=== PATIENT | female | born 1935 | race Hispanic/Latino ===

== ENCOUNTER 2018-12-11 20:23 | Observation (INO) | payer OTHER, MEDICARE ==
[~2018-12-11] VITALS: Ht 160 cm; Wt 58.1 kg
[2018-12-11] MEDS ORDERED: ONDANSETRON HCL 4 MG/2 ML VIAL ONE (20:56)
[2018-12-11] MEDS ORDERED: MORPHINE SULFATE 2 MG/ML 1ML SYG ONE (20:57)
[2018-12-11 20:59] LABS: BASOPHILS % (AUTO) 0.4 % (0.0-5.0); EOSINOPHILS % (AUTO) 2.6 % (0.0-8.0); HEMATOCRIT 40.1 % (36-48); LYMPHOCYTES % (AUTO) 30.8 % (21.0-51.0); MEAN CORPUSCULAR HEMOGLOBIN 30.8 pg (27.0-33.0); MEAN CORPUSCULAR HGB CONC 33.7 g/dL (32.0-36.0); MEAN CORPUSCULAR VOLUME 91.2 fL (79-99); MONOCYTES % (AUTO) 8.7 % (3.0-13.0); NEUTROPHILS % (AUTO) 57.5 % (40.0-77.0); NUCLEATED RED BLOOD CELLS 0.1 % (0.0-0.19); PLATELET COUNT (AUTO) 218 K/uL (130-400); RED BLOOD CELL COUNT(AUTO) 4.39 MIL/uL (4.00-5.50); RED CELL DISTRIBUTION WIDTH 13.5 % (11.0-15.5); WHITE BLOOD COUNT (AUTO) 10.9 K/uL (4.8-10.8)
[2018-12-11 21:16] LABS: CREATININE 1.4 mg/dL (0.5-1.5); POTASSIUM 3.6 mmol/L (3.5-5.1)
[2018-12-11 21:20] LABS: ALBUMIN 3.8 g/dL (3.5-5.0); BILIRUBIN,TOTAL 0.3 mg/dL (0.2-1.0); TOTAL PROTEIN, SERUM 8.3 g/dL (6.0-8.3)
[2018-12-11] MEDS ORDERED: SODIUM CHLORIDE 0.9% 100 ML IV ONE (23:53)
[2018-12-11] MEDS ORDERED: CEFTRIAXONE SODIUM 1 GM ONE (23:53)
[2018-12-12] VITALS (7 sets, daily range): BP systolic 105–159; BP diastolic 58–82
--- NOTE | 2018-12-12 02:20 | NUR ---
ADMIT PT ADMITTED TO ROOM 418, AAOX3. CLAIMS OF SLIGHT PAINS TO RT LOWER QUAD OF ABDOMEN PAIN, BUT REFUSES ANY PAIN MEDS AT THIS TIME. ADMISSION CARE DONE. ADMISSION DATA BASE COMPLETED. PICTURE OF EXCORIATED ABDOMINAL WALL AND COLOSTOMY STOMA TAKEN, PLACED IN THE CHART. DRESSING WITH PETROLEUM GAUZE DONE OVER COLOSTOMY SITE THEN APPLIED BARRIER CREAM ON RED AND EXCORIATED SKIN SURROUNDING STOMA. COVERED WITH 4X4 THEN SECURED WITH PAPER TAPE. STARTED ON IVF OF NS REGULATED AT 75CC/HR. KEPT COMFORTABLE IN BED WITH HOB ELEVATED. PROVIDED WITH CLEAR LIQUIDS AT THIS TIME. OREINTED TO ROOM AND UNIT. IN FOR MORE CARE AND MANAGEMENT. Addendum: 12/12/18 at 0345 by DINO NATARAJAN RN RN Amended: Links added.
[2018-12-12 02:38] LABS: APPEARANCE,URINE Clear (CLEAR); BILIRUBIN,URINE Negative (NEGATIVE); COLOR,URINE Yellow (YELLOW); GLUCOSE, URINE (UA) Negative (NEGATIVE); KETONES,URINE Negative (NEGATIVE); LEUKOCYTE ESTERASE ,URINE Trace (NEGATIVE); NITRATE,URINE Negative (NEGATIVE); OCCULT BLOOD,URINE Negative (NEGATIVE); PROTEIN,URINE Trace mg/dL (NEGATIVE); UROBILINOGEN,URINE 0.2 mg/dL (0.2-1.0)
[2018-12-12 02:46] LABS: BACTERIA,URINE Few /HPF (None Seen); RBC,URINE 0-1 /HPF (0-1); WBC,URINE 0-1 /HPF (0-1)
[2018-12-12] MEDS ORDERED: LACTATED RINGERS 1000ML 1,000 ML IV ONE (02:46)
[2018-12-12 02:47] LABS: HYALINE CASTS, URINE 0-1 /LPF (0-1 /LPF)
[2018-12-12] MEDS: LACTATED RINGERS 1000ML 1,000 ML IV SCH ×2 (03:54→16:08)
[2018-12-12] MEDS ORDERED: ACETAMINOPHEN 325 MG TAB PO PRN (04:00)
[2018-12-12] MEDS ORDERED: ONDANSETRON HCL 4 MG/2 ML VIAL IVP PRN (04:00)
[2018-12-12] MEDS ORDERED: HYDRALAZINE HCL 20 MG/ML VIAL IV PRN (04:00)
[2018-12-12] MEDS ORDERED: TEMAZEPAM 15 MG CAPSULE PO PRN (04:00)
[2018-12-12] MEDS ORDERED: MORPHINE SULFATE 4 MG/1ML SYG IVP PRN (04:00)
--- NOTE | 2018-12-12 06:10 | NUR ---
ROUNDS PT RESTING WELL, FAIRLY ASLEEP WITH RESPIRATIONS EVEN AND UNLABORED. NO DISTRESS NOTED. KEPT UNDISTURBED FOR NOW. FOR MORE CARE AND MANAGEMENT.
[2018-12-12] MEDS: MORPHINE SULFATE 2 MG/ML 1ML SYG IVP PRN (10:15)
[2018-12-12] MEDS: FAMOTIDINE/PF 20 MG/2 ML VIAL IV SCH (10:18)
--- NOTE | 2018-12-12 16:00 | NUR ---
INITIAL MET W PATIENT AT [facility]. PT HERE FOR LEAKING UNMANAGEABLE OSTOMY- WITH SKIN EXCORIATION AND CONSTANT OZZING AROUN OSTOMY FLANGE- SKIN IS RAW AND RED PT LIVES W DAUGHTER AND SON, SON MARGARET WORKS AND WILL SUPPLY TRANSPORT HOME DAUGHTER CURRENTLY HOSPITALIZED FOR KIDNEY STONES PT STATES SHE NO LONGER GOES TO SEE DR. FLANAGAN, WANTS THE FACE SHEET CHANGES BUT CANNOT REMEMBER HER MD NAME, THINKS ITS [facility]? HAS A ROLLING WALKER AND USES IT AT ALL TIMES. NO PROVIDER SERVICES HAS HAS OSTOMY SINCE MARCH, HAVING TROUBLE GETTING SUPPLIES. [facility] WHERE SHE GETS HER SUPPLIES HAVE TOLD HER THEY CAN NO LONGER REFILL THE RX. PT CONCERNED AOBUT THIS. SPOEK TO CHRISTELLE Vo THE OSTOMY SITE- MACERATED, RED SORE- WILL LOIS SURGEONS RECOMMENDATIONS Addendum: 12/13/18 at 1258 by LEANNE PATHAK RN CM Amended: Links added.
[2018-12-12] MEDS ORDERED: DIPHENHYDRAMINE HCL 25 MG CAPSULE PO PRN (20:15)
--- NOTE | 2018-12-12 20:15 | NUR ---
MD DR JACINTO IN TO SEE PT. INSPECTED OSTOMY SITE AND NEW ORDERS GIVEN. PLEASE REFER TO CPOE. RESOURCE NURSE MADE AWARE OF MD ORDER FOR OSTOMY SITE MANAGEMENT AND NEEDED SUPPLY. RESOURCE NURSE STATED WILL TALK TO MATERIALS MANAGEMENT TOMORROW. OSTOMY SITE CLEANSED WITH SOAP AND WATER THEN REAPPLIED COLOSTOMY BAG. APPLIED NYSTATIN CREAM AROUND OSTOMY SITE . CHANGED SOILED LINEN. KEPT COMFORTABLE IN BED. CALL LIGHT WITHIN REACH. WILL MONITOR PT. Addendum: 12/13/18 at 0358 by DINO NATARAJAN RN RN Amended: Links added.
[2018-12-12] MEDS: NYSTATIN 30 GM CREAM.GM. TP SCH (20:22)
[2018-12-12] MEDS: CEFTRIAXONE SODIUM 1 GM IVP SCH (23:29)
[2018-12-13] MEDS ORDERED: MAGNESIUM 2GM PREMIX 50ML 50 ML IV SCH (00:30)
--- NOTE | 2018-12-13 02:00 | NUR ---
ROUNDS PT RESTING WELL WITH RESPIRATIONS EVEN NAD UNLABORED. NO NOTED DISTRESS. KEPT RESTED AND COMFORTABLE. CALL LIGHT WITHIN REACH. WILL MONITOR PT.
[2018-12-13] MEDS ORDERED: XALA2.5OS OU (03:35)
[2018-12-13 03:37] VITALS: BP 112/60
[2018-12-13] MEDS: LACTATED RINGERS 1000ML 1,000 ML IV SCH ×3 (05:01→23:21)
--- NOTE | 2018-12-13 06:00 | NUR ---
ROUNDS PT RESTING WELL, FAIRLY ASLEEP WITH RESPIRATIONS EVEN AND UNLABORED. NO DISTRESS NOTED. KEPT RESTED AND COMFORTABLE. FOR MORE CARE.
[2018-12-13 07:58] VITALS: BP 131/64
[2018-12-13 11:00] VITALS: BP 135/56
--- NOTE | 2018-12-13 11:30 | NUR ---
DISCHARGE PLAN- [facility] FOR OSTOMY CARE REVEWED ORDER FROM DR. MCKINNEY- FOR WOUND CROWN, DISCUSSED WITH WEAVER HAND LOOM AND PRIMARY RN, CALL TO [facility], THEY WILL COME TO ASSESSMENT THEN ORDER DISCUSSED DC PLAN WITH INSURANCE- CAN PT GO TO SNF FOR PT AND OSTOMY CARE? [facility]ON[facility]I [facility] STATED IF REFERRAL MADE EARLY TODAY, CAN GET APPROVAL TODAY . DISCUSSED WITH PT; PT READY TO BE BATHED, UNALBE TO SIGNED CONSENT, VERBAL CONSENT RECD FOR HCNR; [facility] REP HERE, DISCSUED TH DEVICE THAT WILL ASSIST W WOUND HEALING- WILL BE ORDRE, WILL BE HERE IN TWO DAYS. DISCUSSED W CM DIRECTOR, PT CAN GO TO SNF WHEN APPROIVED AND WOUND CROWN CAN BE DELIVERED TO THEM WHEN IT ARRIVED. PKT SENT, STILL PENDING PT NOTES AND PASSR. Addendum: 12/13/18 at 1304 by LEANNE PATHAK RN CM Amended: Links added.
--- NOTE | 2018-12-13 15:00 | NUR ---
PT NOTES AND PASSR GIVEN TO REP Addendum: 12/13/18 at 1739 by LEANNE PATHAK RN CM Amended: Links added.
[2018-12-13 16:00] VITALS: BP 115/63
[2018-12-13] MEDS: MORPHINE SULFATE 2 MG/ML 1ML SYG IVP PRN (18:17)
[2018-12-13 19:00] VITALS: BP 122/57
[2018-12-13] MEDS: FAMOTIDINE/PF 20 MG/2 ML VIAL IV SCH (20:19)
[2018-12-13] MEDS: NYSTATIN 30 GM CREAM.GM. TP SCH (20:20)
--- NOTE | 2018-12-13 20:50 | NUR ---
ASSESS SHIFT ASSESSMENT DONE, PLEASE REFER TO CHART. NOTED OSTOMY SITE LEAKING, REMOVED WET DUODERM THEN CLEANSED AREA WITH SALINE PAT DRY AND SECURED COLOSTOMY BAG WITH DUODERM. APPLIED BARRIER CREAM ON EXCORIATED SKIN. EMPTIED COLOSTOMY BAG. KEPT COMFORTABLE IN BED. CALL LIGHT WITHIN REACH. WILL MONITOR PT. Addendum: 12/14/18 at 0139 by DINO NATARAJAN RN RN Amended: Links added.
[2018-12-13] MEDS: LATANOPROST 2.5 ML DROPS OU SCH (21:00)
[2018-12-13] MEDS: CEFTRIAXONE SODIUM 1 GM IVP SCH (23:21)
[2018-12-14] VITALS: BP 135/61
--- NOTE | 2018-12-14 02:00 | NUR ---
ROUNDS PT RESTIGN WELL. SLEPT AT INTERVALS. NO DISTRESS NOTED. KEPT COMFORTABLE. CALL LIGHT WITHIN REACH. WILL MONITOR PT.
[2018-12-14 04:00] VITALS: BP 133/75
[2018-12-14 05:16] LABS: HEMATOCRIT 34.2 % (36-48); MEAN CORPUSCULAR HEMOGLOBIN 31.3 pg (27.0-33.0); NUCLEATED RED BLOOD CELLS 0.1 % (0.0-0.19); PLATELET COUNT (AUTO) 146 K/uL (130-400); RED BLOOD CELL COUNT(AUTO) 3.72 MIL/uL (4.00-5.50); RED CELL DISTRIBUTION WIDTH 13.7 % (11.0-15.5); WHITE BLOOD COUNT (AUTO) 10.3 K/uL (4.8-10.8)
[2018-12-14 05:32] LABS: CREATININE 1.1 mg/dL (0.5-1.5); POTASSIUM 3.5 mmol/L (3.5-5.1)
--- NOTE | 2018-12-14 06:00 | NUR ---
ROUNDS PT RESTING WELL, STILL FAIRLY ASLEEP. NO DISTRESS NOTED. KEPT UNDISTURBED FOR NOW. FOR MORE CARE.
[2018-12-14 07:30] VITALS: BP 136/71
[2018-12-14] MEDS ORDERED: LEVOFLOXACIN 500 MG TABLET PO SCH (09:00)
--- NOTE | 2018-12-14 10:00 | NUR ---
WOUND CROWN RECD AND EXAMINED CALL TO [facility],ADVISED PER TEMO JAQUEZ, LET HCNR PUT ON THEY WILL BE THE ONES ASSESSING IF THIS WILL WORK FOR PATIENT. CALL TO ROBBY ADVISED HER WILL SENT THE WOUND CROWN, VERBALIZED UNDERSTANDING OF THE PLAN
[2018-12-14] MEDS: FAMOTIDINE/PF 20 MG/2 ML VIAL IV SCH (10:12)
[2018-12-14] MEDS: LATANOPROST 2.5 ML DROPS OU SCH (10:13)
[2018-12-14] MEDS: LACTATED RINGERS 1000ML 1,000 ML IV SCH (10:16)
[2018-12-14] MEDS: NYSTATIN 30 GM CREAM.GM. TP SCH (10:16)
[2018-12-14 11:00] VITALS: BP 126/73
--- NOTE | 2018-12-14 15:00 | NUR ---
REPORT CALLED TO [facility] AFTER MEDICAL REC WAS COMPLETE AND FAXED, IV REMOVED WITH CATHETER INTACT AND SITE DRESSED. SUPPLIES FOR COLOSTOMY SENT WITH PATIENT , HARDBOARD GRINDER GIVEN PATIENT BELONGING AND SUPPLIES AND COPY OF MEDICAL RECORD. PATIENT LEFT WITH HRN HARDBOARD GRINDER VIA WHEELCHAIR . NO QUESTIONS OR CONCERNS AT THIS TIME
== END 2018-12-14 16:05 ==
LOC: EDH 20:23 → EDHIP 12-12 00:10 → 4CH 12-12 02:05
PROVIDERS: ADMIT Internal Medicine Pulmonary Disease; ATTEND Internal Medicine Pulmonary Disease
DX: L03.311 Cellulitis of abdominal wall (principal); I10 Essential (primary) hypertension; Z93.3 Colostomy status; Z93.2 Ileostomy status; Z90.49 Acquired absence of other specified parts of digestive tract; Z85.038 Personal history of other malignant neoplasm of large intestine
CPT/HCPCS: 36415 ×2; 74176; 80048; 80053; 81001; 82150; 83690; 85025; 85027; 93005; 96374; 96375; 96376 ×2; 97039 ×2; 97116 ×2; 97161; 99284; A4406; G0378 ×63; G8978; G8979; G8980; G8981; G8982; G8983; J0696 ×3; J2405; J3490 ×3; J7120 ×4; Q0163